=== PATIENT | female | born 1940 | race Caucasian/White ===

== ENCOUNTER → 2018-01-04 | Outpatient (CLI) | payer MEDICARE, OTHER ==
[~2018-01-04] MED LIST: ADULT ASPIRIN81 MG PO; ASPIRIN81 MG PO; BENTYL10 MG PO; CALCIUM + D 601 EAC1 PO; CLOPIDOGREL75 MG PO; CLORAZEPATE D3.75 MG PO; ENSURE HIGH PR414 ML PO; HYDROCODONE-AP1 EAC1 PO; LEVSIN0.125 MG PO; MULTI-VITAMIN1 EACH PO; NORCO 10-325 T1 EACH PO; PEPCID20 MG PO; PREMARIN0.625 MG PO; SPIRIVA18 MCG INH; Z.0.CENTRUM COMPLE1 PO; Z.0.LISINOPRIL10 MG PO; Z.0.OMEPRAZOLE40 MG PO; Z.0.PREMARIN0.9 MG PO; Z.0.ZETIA10 MG PO; ZESTRIL10 MG PO; ZESTRIL2.5 MG PO
--- NOTE | 2018-01-04 16:49 | Diagnostic Imaging Report ---
PROCEDURE:US THYROID COMPARISON:Thyroid ultrasound 12/14/2016. INDICATIONS:Multinodular Goiter TECHNIQUE:Transverse and sagittal images were obtained of the thyroid gland. FINDINGS: THYROID GLAND: SIZE: RIGHT LOBE:4.6 x 2.1 x 1.7 cmNormal in size. LEFT LOBE:3.9 x 1.2 x 1.0 cmNormal in size. ISTHMUS:0.2 cm Normal in size. APPEARANCE:Homogeneous echotexture without increased vasularity MASSES/Nodules: Right thyroid: - 1.9 x 1.5 x 1.4 cm solid isoechoic/hypoechoic nodule with peripheral vascularity in the interpolar region. Previously 1.9 x 1.4 x 1.3 cm. - 0.2 x 0.2 x 0.2 cm cyst in the interpolar region. Left thyroid: - 0.6 x 0.4 x 0.5 cm anechoic cyst in the interpolar region with a single ringdown artifact. Previously 0.5 x 0.3 x 0.8 cm. PARATHYROID: No focal parathyroid masses. CONCLUSION: Stable bilateral thyroid nodules. Dictated by: Adam Diaz M.D. on 01/04/2018 at 16:48 Electronically approved by: Adam Diaz M.D. on 01/04/2018 at 16:48
== END ==
LOC: US 14:00
PROVIDERS: ATTEND Family Medicine
DX: E04.2 Nontoxic multinodular goiter (principal)
CPT/HCPCS: 76536

== ENCOUNTER → 2018-03-08 | Outpatient (CLI) | payer MEDICARE, OTHER ==
[2018-03-08 14:05] LABS: BASOPHILS % 0.3 % (0.0-1.0); EOSINOPHILS # (AUTO) 0.1 (0.0-0.4); EOSINOPHILS % 0.7 % (0.0-6.0); HEMATOCRIT 38.9 % (34.2-44.1); HEMOGLOBIN 13.4 g/dL (12.0-16.0); LYMPHOCYTES # (AUTO) 1.7 (1.0-3.2); LYMPHOCYTES % 18.6 % (18.0-39.1); MEAN CORPUSCULAR HEMOGLOBIN 32.9 pg (28-32); MEAN CORPUSCULAR HGB CONC 34.4 g/dL (31-35); MEAN CORPUSCULAR VOLUME 95.6 fL (81-99); MONOCYTES # (AUTO) 0.4 (0.2-0.8); MONOCYTES % 4.9 % (4.4-11.3); NEUTROPHILS # (AUTO) 6.8 (2.1-6.9); NEUTROPHILS % 75.3 % (38.7-80.0); PLATELET COUNT 229 x10e3/uL (140-360); RED BLOOD COUNT 4.07 x10e6/uL (3.6-5.1); RED CELL DISTRIBUTION WIDTH 12.4 % (11.7-14.4)
[2018-03-08 14:29] LABS: ALANINE AMINOTRANSFERASE 10 IU/L (0-55); ALBUMIN 3.5 g/dL (3.5-5.0); ALBUMIN/GLOBULIN RATIO 1.2 (0.8-2.0); ALKALINE PHOSPHATASE 49 IU/L (40-150); AMYLASE 59 U/L (25-125); ANION GAP 12.4 mmol/L (8-16); BLOOD UREA NITROGEN 21 mg/dL (7-26); BUN/CREATININE RATIO 25 (6-25); CALCIUM 9.5 mg/dL (8.4-10.2); CARBON DIOXIDE 25 mmol/L (22-29); CHLORIDE 102 mmol/L (98-107); CREATININE, SERUM 0.83 mg/dL (0.57-1.11); EST GLOMERULAR FILTRATION RATE > 60 ML/MIN (60-); GLUCOSE 184 mg/dL (74-118); POTASSIUM 4.4 mmol/L (3.5-5.1); SODIUM 135 mmol/L (136-145)
--- NOTE | 2018-03-08 15:21 | Diagnostic Imaging Report ---
PROCEDURE: CT ABDOMEN AND PELVIS WITHOUT CONTRAST TECHNIQUE: The abdomen and pelvis were scanned utilizing a multidetector helical scanner from the diaphragm to the lesser trochanter after the oral administration of Redicat. No IV contrast was administered per physician's request. Coronal and sagittal multiplanar reformations were obtained. COMPARISON: [facility], CT, CT ABDOMEN/PELVIS , 03/14/2015, 20:21. INDICATIONS: VOMITING, WEIGHT LOSS, chronic abdominal pain for "a long time" FINDINGS: ABSENCE OF INTRAVENOUS CONTRAST DECREASES SENSITIVITY FOR DETECTION OF FOCAL LESIONS AND VASCULAR PATHOLOGY. LOWER THORAX: Unremarkable. HEPATOBILIARY: Normal hepatic size and contour. No focal hepatic lesions. Improved, now mild central intrahepatic biliary ductal dilation and improved, now mild to moderate dilation of the common bile duct, which measures 9 mm at the yonatan hepatis. No radiopaque intraluminal filling defects. SPLEEN: No splenomegaly. PANCREAS: No focal masses or ductal dilatation. ADRENALS: No adrenal nodules. KIDNEYS/URETERS: Stable punctate nonobstructing calculus in the interpolar left kidney (series 2 image 20). No other renal or any ureteral calculi, hydronephrosis, or obstruction. No contour abnormalities. Atherosclerotic calcification of the right renal artery branches. PELVIC ORGANS/BLADDER: Bladder is unremarkable. Uterus is absent. No adnexal masses. Multiple pelvic phleboliths. PERITONEUM / RETROPERITONEUM: No free air or fluid. LYMPH NODES: No lymphadenopathy. VESSELS: Atherosclerotic calcification of the abdominal aorta and iliac vessels. Stable, peripherally calcified 0.9 and 0.8 cm distal splenic artery aneurysms (series 2 image 15). GI TRACT: No bowel dilation or evidence of obstruction. No pericolonic inflammatory changes. Distal descending and sigmoid colon diverticulosis, without diverticulitis. BONES AND SOFT TISSUES: No aggressive lytic lesion. Degenerative disc changes L5-S1, which are stable. Stable bilateral gluteal region calcified injection granulomas. IMPRESSION: 1. no acute abdominopelvic abnormalities. 2. Interval decrease in mild central intrahepatic biliary ductal dilation and mild to moderate common bile duct dilation, likely reflecting post cholecystectomy status. 3. Stable punctate nonobstructing calculus in the interpolar left kidney. No ureteral calculi, hydronephrosis, or obstruction. 4. Distal descending and sigmoid colon diverticulosis, without diverticulitis. No bowel dilation or evidence of obstruction. Boris Katz M.D. Dictated by: Boris Katz M.D. on 03/08/2018 at 15:22 Electronically approved by: Boris Katz M.D. on 03/08/2018 at 15:22
== END ==
LOC: CT 13:20
PROVIDERS: ATTEND Surgery
DX: R11.10 Vomiting, unspecified (principal); R63.4 Abnormal weight loss
CPT/HCPCS: 36415; 74176; 80053; 82150; 85025

== ENCOUNTER 2018-03-28 12:40 | Emergency (ER) | payer MEDICARE, OTHER ==
[~2018-03-28] VITALS: Ht 152.4 cm; Wt 41.7 kg
--- OUTSIDE RECORDS SUMMARY | 2018-03-28 12:43 | XMS REPORT ---
Author Author [facility] Address Unknown Phone Unavailable Care Team Providers Care Scratcher Tender Name Role Phone JONN CLAIRE Unavailable Unavailable TARYN GRAY Unavailable Unavailable Problems This patient has no known problems. Allergies, Adverse Reactions, Alerts This patient has no known allergies or adverse reactions. Medications This patient has no known medications. Results Test Description Test Time Test Comments Text Results Atomic Results Result Comments CT ABDOMEN/PELVIS WO [place] [address] Patient Name: SCOTT THOMAS MR #: [id number] : 1940 Age/Sex: 77/F Req # : [id number] Adm Physician: Ordered by: JONN CLAIRE MD Report #: [id number] Location: CT Room/Bed: Procedure: [id number] CT/CT ABDOMEN/PELVIS WO Exam Date: Exam Time: REPORT STATUS: Signed PROCEDURE: CT ABDOMEN AND PELVIS WITHOUT CONTRAST TECHNIQUE: The abdomen and pelvis were scanned utilizing a multidetector helical scanner from the diaphragm to the lesser trochanter after the oral administration of Redicat. No IV contrast was administered per physician's request. Coronal and sagittal multiplanar reformations were obtained. COMPARISON: [facility], CT, CT ABDOMEN/PELVIS WO , 03/14/2015, 20:21. INDICATIONS: VOMITING, WEIGHT LOSS, chronic abdominal pain for "a long time" FINDINGS: ABSENCE OF INTRAVENOUS CONTRAST DECREASES SENSITIVITY FOR DETECTION OF FOCAL LESIONS AND VASCULAR PATHOLOGY. LOWER THORAX: Unremarkable. HEPATOBILIARY: Normal hepatic size and contour. No focal hepatic lesions. Improved, now mild central intrahepatic biliary ductal dilation and improved, now mild to moderate dilation of the common bile duct, which measures 9 mm at the yonatan hepatis. No radiopaque intraluminal filling defects. SPLEEN: No splenomegaly. PANCREAS: No focal masses or ductal dilatation. ADRENALS: No adrenal nodules. KIDNEYS/URETERS: Stable punctate nonobstructing calculus in the interpolar left kidney (series 2 image 20). No other renal or any ureteral calculi, hydronephrosis, or obstruction. No contour abnormalities. Atherosclerotic calcification of the right renal artery branches. PELVIC ORGANS/BLADDER: Bladder is unremarkable. Uterus is absent. No adnexal masses. Multiple pelvic phleboliths. PERITONEUM / RETROPERITONEUM: No free air or fluid. LYMPH NODES: No lymphadenopathy. VESSELS: Atherosclerotic calcification of the abdominal aorta and iliac vessels. Stable, peripherally calcified 0.9 and 0.8 cm distal splenic artery aneurysms (series 2 image 15). GI TRACT: No bowel dilation or evidence of obstruction. No pericolonic inflammatory changes. Distal descending and sigmoid colon diverticulosis, without diverticulitis. BONES AND SOFT TISSUES: No aggressive lytic lesion. Degenerative disc changes L5-S1, which are stable. Stable bilateral gluteal region calcified injection granulomas. IMPRESSION: 1. no acute abdominopelvic abnormalities. 2. Interval decrease in mild central intrahepatic biliary ductal dilation and mild to moderate common bile duct dilation, likely reflecting post cholecystectomy status. 3. Stable punctate nonobstructing calculus in the interpolar left kidney. No ureteral calculi, hydronephrosis, or obstruction. 4. Distal descending and sigmoid colon diverticulosis, without diverticulitis. No bowel dilation or evidence of obstruction. Ramirez Katz M.D. Dictated by: Ramirez Katz M.D. on 03/08/2018 at 15:22 Electronically approved by: Ramirez Katz M.D. on 03/08/2018 at 15:22 Dictated By: RAMIREZ KATZ MD 1522 Transcribed By: JEANNIE on 03/08/18 1522 COPY TO: JONN CLAIRE MD US THYROID [place] [id number] [place] [address] Patient Name: SCOTT THOMAS MR #: [id number] : 1940 Age/Sex: 77/F Req #: [id number] Adm Physician: Ordered by: TARYN GRAY MD Report #: [id number] Location: US Room/Bed: Procedure: [id number] US/US THYROID Exam Date: Exam Time: REPORT STATUS: Signed PROCEDURE: US THYROID COMPARISON: Thyroid ultrasound 12/14/2016. INDICATIONS: Multinodular Goiter TECHNIQUE: Transverse and sagittal images were obtained of the thyroid gland. FINDINGS: THYROID GLAND: SIZE: RIGHT LOBE: 4.6 x 2.1 x 1.7 cm Normal in size. LEFT LOBE: 3.9 x 1.2 x 1.0 cm Normal in size. ISTHMUS : 0.2 cm Normal in size. APPEARANCE: Homogeneous echotexture without increased vasularity MASSES/Nodules: Right thyroid: - 1.9 x 1.5 x 1.4 cm solid isoechoic/hypoechoic nodule with peripheral vascularity in the interpolar region. Previously 1.9 x 1.4 x 1.3 cm. - 0.2 x 0.2 x 0.2 cm cyst in the interpolar region. Left thyroid: - 0.6 x 0.4 x 0.5 cm anechoic cyst in the interpolar region with a single ringdown artifact. Previously 0.5 x 0.3 x 0.8 cm. PARATHYROID: No focal parathyroid masses. CONCLUSION: Stable bilateral thyroid nodules. Dictated by: Jesus Rasheed M.D. on 01/04/2018 at 16:48 Electronically approved by: Jesus Rahseed M.D. on 01/04/2018 at 16:48 Dictated By: JESUS RASHEED MD 1648 Transcribed By: JEANNIE on 01/04/18 1648 COPY TO: TARYN GRAY MD
[2018-03-28 13:32] LABS: BILIRUBIN,URINE NEGATIVE (NEGATIVE); CLARITY,URINE CLEAR (CLEAR); COLOR,URINE YELLOW (YELLOW); KETONES,URINE NEGATIVE (NEGATIVE); LEUKOCYTE ESTERASE ,URINE NEGATIVE (NEGATIVE); NITRITE,URINE NEGATIVE (NEGATIVE); PROTEIN,URINE DIPSTICK NEGATIVE (NEGATIVE); URINE UROBILINOGEN 0.2 mg/dL (0.2 - 1)
[2018-03-28 13:51] LABS: EPITHELIAL CELLS,URINE FEW /LPF
[2018-03-28] MEDS ORDERED: HYDROCODONE/APAP 5MG-325MG TAB PO ONE (14:15)
[2018-03-28 16:35] VITALS: BP 172/71
== END 2018-03-28 16:39 | disposition home or self-care (01) ==
LOC: ER 12:40
DX: M54.41 Lumbago with sciatica, right side (principal)
CPT/HCPCS: 81001; 99283

== ENCOUNTER 2018-12-26 16:28 | Emergency (ER) | payer MEDICARE, OTHER ==
[~2018-12-26] VITALS: Ht 152.4 cm; Wt 41.7 kg
[2018-12-26] MEDS ORDERED: SODIUM CHLORIDE 0.9% 1000ML 1,000 ML IV STA (18:05)
[2018-12-26] MEDS ORDERED: DIATRIZOATE MEGL/DIATRIZOA SOD 30 ML BTL PO ONE (18:20)
[2018-12-26] MEDS ORDERED: ONDANSETRON HCL INJ 2MG/ML 2ML 2 MG/ML VIAL IV ONE ×2 (18:30→22:00)
[2018-12-26] MEDS ORDERED: MORPHINE SULFATE INJ 4 MG/ML INJ 1ML IV ONE ×2 (18:30→22:00)
--- NOTE | 2018-12-26 20:16 | Diagnostic Imaging Report ---
EXAMINATION: CHEST SINGLE (PORTABLE) INDICATION: Severe diarrhea. Weakness. COMPARISON: None FINDINGS: AP view TUBES and LINES: None. LUNGS: Lungs are well inflated. Lungs are clear. There is no evidence of pneumonia or pulmonary edema. PLEURA: No pleural effusion or pneumothorax. HEART AND MEDIASTINUM: The cardiomediastinal silhouette is unremarkable. BONES AND SOFT TISSUES: No acute osseous lesion. Healed prior fracture deformities. Soft tissues are unremarkable. UPPER ABDOMEN: No free air under the diaphragm. IMPRESSION: No acute thoracic abnormality. Signed by: Dr. Adam Diaz M.D. on 12/26/2018 8:13 PM
--- NOTE | 2018-12-26 20:22 | Diagnostic Imaging Report ---
EXAM: CT Abdomen and Pelvis WITHOUT contrast INDICATION: ^abdominal pain and n/v/d COMPARISON: None. TECHNIQUE: Abdomen and pelvis were scanned utilizing a multidetector helical scanner from the lung base to the pubic symphysis without administration of IV contrast. Absence of intravenous contrast decreases sensitivity for detection of focal lesions and vascular pathology. Coronal and sagittal reformations were obtained. Routine protocol was performed. IV CONTRAST: None ORAL CONTRAST: Gastrografin COMPLICATIONS: None RADIATION DOSE: Total DLP: 147.42 mGy*cm Estimated effective dose: (DLP x 0.015 x size factor) mSv CTDIvol has been reviewed. It is below the limits set by the Radiation Protocol Committee (RPC). FINDINGS: LINES and TUBES: None. LOWER THORAX: Unremarkable HEPATOBILIARY: No focal hepatic lesions. There is intra- and extra- hepatic biliary dilation likely post cholecystectomy reservoir effect. GALLBLADDER: There are cholecystectomy clips. SPLEEN: No splenomegaly. PANCREAS: No focal masses or ductal dilatation. ADRENALS: No adrenal nodules KIDNEYS/URETERS: No hydronephrosis. No cystic or solid mass lesions. No stones. GI TRACT: No abnormal distention, wall thickening, or evidence of bowel obstruction. There are diverticula within the colon with mild wall thickening in the sigmoid colon (series 2, image 52). Appendix is not clearly identified. There is however no fat stranding or adenopathy in the right lower quadrant to suggest appendicitis. PELVIC ORGANS/BLADDER: Unremarkable. LYMPH NODES: No lymphadenopathy. VESSELS: There is severe atherosclerotic disease in the aorta and major arterial branches. Possible 0.9 cm calcified splenic artery aneurysm. PERITONEUM / RETROPERITONEUM: No free air or fluid. BONES: Focal moderate severe degenerative changes in L5-S1. SOFT TISSUES: Unremarkable. IMPRESSION: 1. Scattered colonic diverticula especially in the sigmoid colon. 2. Bowel wall thickening of the sigmoid colon, likely colitis rather than diverticulitis. 3. Severe vascular calcifications. Signed by: Dr. Adam Diaz M.D. on 12/26/2018 8:18 PM
[2018-12-26 20:59] LABS: BASOPHILS % 0.3 % (0.0-1.0); EOSINOPHILS # (AUTO) 0.1 (0.0-0.4); EOSINOPHILS % 0.8 % (0.0-6.0); HEMATOCRIT 40.9 % (34.2-44.1); HEMOGLOBIN 14.1 g/dL (12.0-16.0); LYMPHOCYTES # (AUTO) 2.2 (1.0-3.2); MEAN CORPUSCULAR HEMOGLOBIN 31.9 pg (28-32); MEAN CORPUSCULAR HGB CONC 34.5 g/dL (31-35); MEAN CORPUSCULAR VOLUME 92.5 fL (81-99); MONOCYTES # (AUTO) 0.5 (0.2-0.8); MONOCYTES % 6.1 % (4.4-11.3); NEUTROPHILS % 67.6 % (38.7-80.0); PLATELET COUNT 240 x10e3/uL (140-360); RED BLOOD COUNT 4.42 x10e6/uL (3.6-5.1); RED CELL DISTRIBUTION WIDTH 12.8 % (11.7-14.4)
[2018-12-26 21:10] LABS: INR 0.92; PARTIAL THROMBOPLASTIN TIME 24.4 seconds (23.8-35.5); PROTHROMBIN TIME 13.2 seconds (11.9-14.5)
[2018-12-26 21:18] LABS: ALANINE AMINOTRANSFERASE 10 IU/L (0-55); ALBUMIN 4.1 g/dL (3.5-5.0); ALBUMIN/GLOBULIN RATIO 1.6 (0.8-2.0); ALKALINE PHOSPHATASE 53 IU/L (40-150); AMYLASE 76 U/L (25-125); ANION GAP 17.5 mmol/L (8-16); BLOOD UREA NITROGEN 17 mg/dL (7-26); BUN/CREATININE RATIO 21 (6-25); CALCIUM 9.5 mg/dL (8.4-10.2); CARBON DIOXIDE 22 mmol/L (22-29); CHLORIDE 99 mmol/L (98-107); CREATININE, SERUM 0.82 mg/dL (0.57-1.11); EST GLOMERULAR FILTRATION RATE > 60 ML/MIN (60-); GLUCOSE 85 mg/dL (74-118); LIPASE 34 U/L (8-78); MAGNESIUM 2.1 MG/DL (1.3-2.1); POTASSIUM 3.5 mmol/L (3.5-5.1); SODIUM 135 mmol/L (136-145)
[2018-12-26 21:25] LABS: CREATINE KINASE MB 1.5 ng/mL (0-5.0)
[2018-12-26] MEDS ORDERED: ONDANSETRON HCL INJ 2MG/ML 2ML 2 MG/ML VIAL ONE (21:47)
--- NOTE | 2018-12-26 21:54 | NUR ---
pt reports itching without rash to iv site after morphine. GILBERTO Jordan notified
[2018-12-26] MEDS ORDERED: SODIUM CHLORIDE 0.9% 1000ML 1,000 ML IV ONE (22:00)
[2018-12-26] MEDS ORDERED: CIPROFLOXACIN 500 MG TAB PO STA (23:52)
[2018-12-27] MEDS ORDERED: METRONIDAZOLE 500 MG TAB PO ONE
[2019-01-04] MEDS ORDERED: CLONAZEPAM0.5 MG PO (16:54)
== END 2018-12-27 00:35 | disposition home or self-care (01) ==
LOC: ER 16:28
DX: R10.84 Generalized abdominal pain (principal); R11.0 Nausea; R19.7 Diarrhea, unspecified; K52.9 Noninfective gastroenteritis and colitis, unspecified; K57.92 Diverticulitis of intestine, part unspecified, without perforation or abscess without bleeding; I10 Essential (primary) hypertension; K21.9 Gastro-esophageal reflux disease without esophagitis; M54.9 Dorsalgia, unspecified; G89.29 Other chronic pain
CPT/HCPCS: 36415; 71045; 74176; 80053; 82150; 82550; 82553; 83690; 83735; 84484; 85025; 85610; 85730; 93005; 99284; J2270; J2405; J7030

== ENCOUNTER → 2019-01-06 | Day surgery (SDC) | payer MEDICARE, OTHER ==
[~2019-01-06] MED LIST changes: +CLONAZEPAM0.5 MG PO; +LIDOCAINE HCL 2% LOCAL INJ 5 ML SDV VIAL INJ ONE; +PROPOFOL IV EMULSION 10 MG/ML 20 ML VIAL ONE
[2019-01-06 11:20] VITALS: BP 144/62
== END | disposition home or self-care (01) ==
LOC: OR 07:27
PROVIDERS: ATTEND Surgery
DX: K29.70 Gastritis, unspecified, without bleeding (principal); D12.2 Benign neoplasm of ascending colon; R19.09 Other intra-abdominal and pelvic swelling, mass and lump; K21.0 Gastro-esophageal reflux disease with esophagitis; K29.80 Duodenitis without bleeding; K28.9 Gastrojejunal ulcer, unspecified as acute or chronic, without hemorrhage or perforation; K57.30 Diverticulosis of large intestine without perforation or abscess without bleeding; R63.4 Abnormal weight loss; J44.9 Chronic obstructive pulmonary disease, unspecified; I25.10 Atherosclerotic heart disease of native coronary artery without angina pectoris; E04.1 Nontoxic single thyroid nodule; R53.1 Weakness; R42 Dizziness and giddiness; F17.210 Nicotine dependence, cigarettes, uncomplicated; Z88.0 Allergy status to penicillin; Z88.2 Allergy status to sulfonamides; Z88.8 Allergy status to other drugs, medicaments and biological substances; Z88.6 Allergy status to analgesic agent; Z88.3 Allergy status to other anti-infective agents; Z91.041 Radiographic dye allergy status; Z79.02 Long term (current) use of antithrombotics/antiplatelets; Z87.442 Personal history of urinary calculi; Z86.73 Personal history of transient ischemic attack (TIA), and cerebral infarction without residual deficits; Z95.820 Peripheral vascular angioplasty status with implants and grafts; Z95.5 Presence of coronary angioplasty implant and graft
CPT/HCPCS: 43239; 45380; 88305; 88312; J2001; J2704

== ENCOUNTER 2021-11-03 12:26 | Inpatient (IN) | payer MEDICARE, OTHER ==
[~2021-11-03] VITALS: Ht 152.4 cm; Wt 35.9 kg
[~2021-11-03 12:26] MED LIST changes: -LIDOCAINE HCL 2% LOCAL INJ 5 ML SDV VIAL INJ ONE; -PROPOFOL IV EMULSION 10 MG/ML 20 ML VIAL ONE
[2021-11-03] MEDS: SODIUM CHLORIDE 0.9% 1000ML 1,000 ML IV SCH ×2 (13:24→17:15)
[2021-11-03 13:40] LABS: BASOPHILS # (AUTO) 0.1 (0.0-0.1); BASOPHILS % 0.5 % (0.0-1.0); EOSINOPHILS # (AUTO) 0.8 (0.0-0.4); EOSINOPHILS % 8.3 % (0.0-6.0); HEMOGLOBIN 15.8 g/dL (12.0-16.0); LYMPHOCYTES # (AUTO) 1.5 (1.0-3.2); LYMPHOCYTES % 14.9 % (18.0-39.1); MEAN CORPUSCULAR HEMOGLOBIN 31.5 pg (28-32); MEAN CORPUSCULAR HGB CONC 33.6 g/dL (31-35); MEAN CORPUSCULAR VOLUME 93.6 fL (81-99); MONOCYTES # (AUTO) 0.4 (0.2-0.8); MONOCYTES % 3.9 % (4.4-11.3); NEUTROPHILS % 72.1 % (38.7-80.0); PLATELET COUNT 273 x10e3/uL (140-360); RED BLOOD COUNT 5.02 x10e6/uL (3.6-5.1); RED CELL DISTRIBUTION WIDTH 13.2 % (11.7-14.4)
[2021-11-03 14:14] LABS: ALBUMIN/GLOBULIN RATIO 1.3 (0.8-2.0); ANION GAP 18.4 mmol/L (8-16); CALCIUM 9.8 mg/dL (8.4-10.2); CREATININE, SERUM 1.16 mg/dL (0.57-1.11); POTASSIUM 4.4 mmol/L (3.5-5.1)
[2021-11-03 14:16] LABS: LIPASE 46 U/L (8-78)
[2021-11-03] MEDS ORDERED: LACTATED RINGER'S 1,000 ML INJ ONE (14:30)
[2021-11-03 16:26] VITALS: BP 146/88
[2021-11-03 20:00] VITALS: BP 129/65
[2021-11-03] MEDS ORDERED: ZOLOFT50 MG PO (22:21)
[2021-11-04] VITALS (8 sets, daily range): BP systolic 128–169; BP diastolic 44–96
[2021-11-04 05:02] LABS: BASOPHILS # (AUTO) 0.1 (0.0-0.1); BASOPHILS % 1.2 % (0.0-1.0); EOSINOPHILS # (AUTO) 1.4 (0.0-0.4); EOSINOPHILS % 23.1 % (0.0-6.0); HEMATOCRIT 36.2 % (34.2-44.1); HEMOGLOBIN 11.9 g/dL (12.0-16.0); MEAN CORPUSCULAR HEMOGLOBIN 31.4 pg (28-32); MEAN CORPUSCULAR HGB CONC 32.9 g/dL (31-35); MEAN CORPUSCULAR VOLUME 95.5 fL (81-99); MONOCYTES # (AUTO) 0.4 (0.2-0.8); MONOCYTES % 6.4 % (4.4-11.3); NEUTROPHILS # (AUTO) 2.2 (2.1-6.9); NEUTROPHILS % 36.1 % (38.7-80.0); PLATELET COUNT 218 x10e3/uL (140-360); RED BLOOD COUNT 3.79 x10e6/uL (3.6-5.1); RED CELL DISTRIBUTION WIDTH 13.2 % (11.7-14.4)
[2021-11-04 05:31] LABS: ALBUMIN 2.9 g/dL (3.5-5.0); ALBUMIN/GLOBULIN RATIO 1.5 (0.8-2.0); ANION GAP 12.9 mmol/L (8-16); CALCIUM 8.1 mg/dL (8.4-10.2); CREATININE, SERUM 0.77 mg/dL (0.57-1.11); POTASSIUM 3.9 mmol/L (3.5-5.1)
[2021-11-04] MEDS: SODIUM CHLORIDE 0.9% 1000ML 1,000 ML IV SCH ×3 (06:13→21:15)
[2021-11-04 06:32] LABS: EOSINOPHILS % (MANUAL) 26 % (0-7); LYMPHOCYTES % (MANUAL) 34 % (19-48); MONOCYTES % (MANUAL) 4 % (3.4-9.0); NEUTROPHILS % (MANUAL) 36 % (40-74); PLATELET ESTIMATE ADEQUATE; PLATELET MORPHOLOGY COMMENT NORMAL; RBC MORPHOLOGY COMMENT NORMAL
[2021-11-04] MEDS ORDERED: CLONAZEPAM 0.5 MG TAB PO PRN (09:30)
[2021-11-04] MEDS: Morphine 2mg Syringe 2 MG/ML SYR IV PRN (23:00)
[2021-11-05] VITALS (8 sets, daily range): BP systolic 126–152; BP diastolic 44–66
[2021-11-05 01:01] LABS: % IRON SATURATION 34 % (15-50); IRON 75 ug/dL (50-170); TOTAL IRON BINDING CAPACITY 220 ug/dL (261-478); TRANSFERRIN 157 mg/dL (180-382)
[2021-11-05] MEDS: SODIUM CHLORIDE 0.9% 1000ML 1,000 ML IV SCH ×3 (05:15→21:15)
[2021-11-05] MEDS ORDERED: DICYCLOMINE HCL 20 MG TAB PO SCH (06:00)
[2021-11-05] MEDS: DICYCLOMINE HCL 20 MG TAB PO SCH ×3 (08:04→22:15)
[2021-11-05] MEDS: CHOLESTYRAMINE 4 GM PACKET PO SCH ×2 (08:07→16:55)
[2021-11-05 13:23] LABS: WBC,FECAL (FECAL LACTOFERRIN) NEGATIVE (NEGATIVE)
[2021-11-05 14:42] LABS: C DIFFICILE TOXIN A&B AMP PROB NEGATIVE (NEGATIVE)
[2021-11-05] MEDS: Morphine 2mg Syringe 2 MG/ML SYR IV PRN (22:20)
[2021-11-05] MEDS ORDERED: DIPHENHYDRAMINE HCL 25 MG CAP PO PRN (22:30)
[2021-11-05] MEDS ORDERED: DIPHENOXYLATE/ATROPINE TAB PO STA (23:19)
[2021-11-05] MEDS ORDERED: CHOLESTYRAMINE 4 GM PACKET PO PRN (23:30)
[2021-11-06] VITALS: BP 137/53
[2021-11-06 04:00] VITALS: BP 124/53
[2021-11-06] MEDS: SODIUM CHLORIDE 0.9% 1000ML 1,000 ML IV SCH ×2 (05:15→06:17)
[2021-11-06 06:05] LABS: ANION GAP 12.9 mmol/L (8-16); CALCIUM 8.3 mg/dL (8.4-10.2); CREATININE, SERUM 0.77 mg/dL (0.57-1.11); POTASSIUM 3.9 mmol/L (3.5-5.1)
[2021-11-06] MEDS: DICYCLOMINE HCL 20 MG TAB PO SCH ×2 (06:17→14:05)
[2021-11-06 07:30] VITALS: BP 130/74
[2021-11-06 08:07] VITALS: BP 130/74
[2021-11-06 11:54] VITALS: BP 156/43
[2021-11-06] MEDS ORDERED: QUESTRAN PACKET4 GM PO (15:42)
[2021-11-06 16:00] VITALS: BP 133/79
[2021-11-06] MEDS ORDERED: PANTOPRAZOLE SOD 40 MG TABEC PO SCH (16:30)
== END 2021-11-06 16:39 | disposition home health service (06) | DRG 682 ==
LOC: ER 12:35 → ERHOLD 13:21 → MED/SURG 16:16
PROVIDERS: ADMIT Family Medicine; ATTEND Family Medicine
DX: N17.9 Acute kidney failure, unspecified (principal); E43 Unspecified severe protein-calorie malnutrition; R64 Cachexia; Z68.1 Body mass index [BMI] 19.9 or less, adult; E86.0 Dehydration; K59.1 Functional diarrhea; F41.1 Generalized anxiety disorder; I25.10 Atherosclerotic heart disease of native coronary artery without angina pectoris; Z95.5 Presence of coronary angioplasty implant and graft; Z88.6 Allergy status to analgesic agent; Z88.1 Allergy status to other antibiotic agents; Z88.5 Allergy status to narcotic agent; Z88.0 Allergy status to penicillin; Z88.2 Allergy status to sulfonamides; Z95.820 Peripheral vascular angioplasty status with implants and grafts; G89.29 Other chronic pain; Z20.822 Contact with and (suspected) exposure to COVID-19
CPT/HCPCS: 36415; 71045; 80048; 80053; 82607; 82746; 83540; 83630; 83690; 83993; 84466; 84484; 85025; 85045; 87045; 87177; 87493; 93005; 94799; 96360; 97139; 99251; 99284; J2270; J7030; J7121; U0002

== ENCOUNTER → 2022-01-30 | Outpatient (CLI) | payer MEDICARE ==
[~2022-01-30] MED LIST changes: +METOPROLOL SUCC25 MG PO; +MINOCYCLINE HCL50 MG PO; +QUESTRAN PACKET4 GM PO; +ZOLOFT50 MG PO
== END ==
LOC: CT 14:10
PROVIDERS: ATTEND Family Medicine
DX: R10.0 Acute abdomen (principal)
CPT/HCPCS: 74176

== ENCOUNTER 2022-06-26 18:05 | Emergency (ER) | payer MEDICARE ==
[~2022-06-26] VITALS: Ht 152.4 cm; Wt 29.5 kg
[2022-06-26 18:51] LABS: BASOPHILS % 0.5 % (0.0-1.0); EOSINOPHILS % 0.7 % (0.0-6.0); HEMOGLOBIN 13.9 g/dL (12.0-16.0); LYMPHOCYTES # (AUTO) 1.2 (1.0-3.2); LYMPHOCYTES % 21.1 % (18.0-39.1); MEAN CORPUSCULAR HEMOGLOBIN 31.2 pg (28-32); MEAN CORPUSCULAR HGB CONC 33.1 g/dL (31-35); MEAN CORPUSCULAR VOLUME 94.4 fL (81-99); MONOCYTES # (AUTO) 0.3 (0.2-0.8); MONOCYTES % 5.8 % (4.4-11.3); NEUTROPHILS # (AUTO) 4.2 (2.1-6.9); NEUTROPHILS % 71.7 % (38.7-80.0); PLATELET COUNT 213 x10e3/uL (140-360); RED BLOOD COUNT 4.45 x10e6/uL (3.6-5.1); RED CELL DISTRIBUTION WIDTH 13.2 % (11.7-14.4)
[2022-06-26 18:53] LABS: CLARITY,URINE CLEAR (CLEAR); COLOR,URINE YELLOW (YELLOW); KETONES,URINE NEGATIVE (NEGATIVE); LEUKOCYTE ESTERASE ,URINE NEGATIVE (NEGATIVE); NITRITE,URINE NEGATIVE (NEGATIVE); PROTEIN,URINE DIPSTICK NEGATIVE (NEGATIVE); URINE UROBILINOGEN 0.2 mg/dL (0.2 - 1)
[2022-06-26 19:05] LABS: BACTERIA,URINE MANY /HPF; EPITHELIAL CELLS,URINE RARE /LPF; WBC,URINE (MAN) 0-5 /HPF (0-5)
[2022-06-26 19:11] LABS: ALBUMIN 3.5 g/dL (3.5-5.0); ALBUMIN/GLOBULIN RATIO 1.1 (0.8-2.0); CALCIUM 9.1 mg/dL (8.4-10.2); CREATININE, SERUM 0.84 mg/dL (0.57-1.11)
[2022-06-26 19:17] LABS: CREATINE KINASE MB 1.4 ng/mL (0-5.0)
[2022-06-26 20:20] VITALS: BP 133/66
== END 2022-06-26 20:21 | disposition home or self-care (01) ==
LOC: ER 18:20
DX: R53.1 Weakness (principal); I10 Essential (primary) hypertension; E03.9 Hypothyroidism, unspecified; R94.31 Abnormal electrocardiogram [ECG] [EKG]; Z20.822 Contact with and (suspected) exposure to COVID-19; Z86.73 Personal history of transient ischemic attack (TIA), and cerebral infarction without residual deficits; Z95.5 Presence of coronary angioplasty implant and graft; F17.210 Nicotine dependence, cigarettes, uncomplicated
CPT/HCPCS: 36415; 71045; 80053; 81001; 82550; 82553; 84484; 85025; 93005; 99284; U0002

== ENCOUNTER 2023-02-14 18:27 | Inpatient (IN) | payer MEDICARE ==
[~2023-02-14] VITALS: Ht 152.4 cm; Wt 29.5 kg
[2023-02-14] MEDS ORDERED: SODIUM CHLORIDE 0.9% 1000ML 1,000 ML IV STA (18:31)
[2023-02-14 18:59] LABS: BASOPHILS # (AUTO) 0.1 (0.0-0.1); BASOPHILS % 0.5 % (0.0-1.0); HEMATOCRIT 40.4 % (34.2-44.1); HEMOGLOBIN 13.6 g/dL (12.0-16.0); LYMPHOCYTES # (AUTO) 1.1 (1.0-3.2); LYMPHOCYTES % 10.1 % (18.0-39.1); MEAN CORPUSCULAR HEMOGLOBIN 30.8 pg (28-32); MEAN CORPUSCULAR HGB CONC 33.7 g/dL (31-35); MEAN CORPUSCULAR VOLUME 91.6 fL (81-99); MONOCYTES # (AUTO) 0.4 (0.2-0.8); MONOCYTES % 3.9 % (4.4-11.3); NEUTROPHILS # (AUTO) 8.9 (2.1-6.9); NEUTROPHILS % 85.2 % (38.7-80.0); PLATELET COUNT 289 x10e3/uL (140-360); RED BLOOD COUNT 4.41 x10e6/uL (3.6-5.1); RED CELL DISTRIBUTION WIDTH 12.5 % (11.7-14.4)
[2023-02-14 19:10] LABS: CLARITY,URINE CLEAR (CLEAR); COLOR,URINE STRAW (YELLOW); KETONES,URINE NEGATIVE (NEGATIVE); LEUKOCYTE ESTERASE ,URINE NEGATIVE (NEGATIVE); NITRITE,URINE NEGATIVE (NEGATIVE); PROTEIN,URINE DIPSTICK NEGATIVE (NEGATIVE); RBC,URINE 0-5 /HPF (0-5); URINE UROBILINOGEN 0.2 mg/dL (0.2 - 1)
[2023-02-14 19:11] LABS: EPITHELIAL CELLS,URINE FEW /LPF
[2023-02-14 19:14] LABS: ALANINE AMINOTRANSFERASE 20 IU/L (0-55); ALBUMIN 3.2 g/dL (3.5-5.0); ALBUMIN/GLOBULIN RATIO 0.9 (0.8-2.0); ALKALINE PHOSPHATASE 88 IU/L (40-150); ANION GAP 18.3 mmol/L (8-16); BLOOD UREA NITROGEN 94 mg/dL (7-26); BUN/CREATININE RATIO 46 (6-25); CALCIUM 11.6 mg/dL (8.4-10.2); CARBON DIOXIDE 25 mmol/L (22-29); CHLORIDE 101 mmol/L (98-107); CREATINE KINASE 12 IU/L (29-168); CREATININE, SERUM 2.03 mg/dL (0.57-1.11); GLUCOSE 108 mg/dL (74-118); POTASSIUM 4.3 mmol/L (3.5-5.1); SODIUM 140 mmol/L (136-145)
[2023-02-14] MEDS: SODIUM CHLORIDE 0.9% 1000ML 1,000 ML IV SCH (21:00)
[2023-02-14 22:33] VITALS: BP 148/45
[2023-02-14 22:52] VITALS: BP 148/45
[2023-02-14 22:59] VITALS: BP 148/45
[2023-02-15] VITALS (7 sets, daily range): BP systolic 123–176; BP diastolic 57–72
[2023-02-15 05:31] LABS: BASOPHILS % 0.5 % (0.0-1.0); LYMPHOCYTES % 14.7 % (18.0-39.1); MEAN CORPUSCULAR HEMOGLOBIN 30.5 pg (28-32); MEAN CORPUSCULAR HGB CONC 31.6 g/dL (31-35); MEAN CORPUSCULAR VOLUME 96.7 fL (81-99); MONOCYTES # (AUTO) 0.5 (0.2-0.8); MONOCYTES % 7.9 % (4.4-11.3); NEUTROPHILS # (AUTO) 5.1 (2.1-6.9); NEUTROPHILS % 76.7 % (38.7-80.0); PLATELET COUNT 252 x10e3/uL (140-360); RED BLOOD COUNT 3.93 x10e6/uL (3.6-5.1); RED CELL DISTRIBUTION WIDTH 12.5 % (11.7-14.4)
[2023-02-15] MEDS: SODIUM CHLORIDE 0.9% 1000ML 1,000 ML IV SCH ×2 (05:33→19:38)
[2023-02-15] MEDS ORDERED: ULTRAM 50MG50 MG PO (05:33)
[2023-02-15 06:32] LABS: ALBUMIN 2.8 g/dL (3.5-5.0); ANION GAP 14.8 mmol/L (8-16); CALCIUM 10.3 mg/dL (8.4-10.2); CREATININE, SERUM 1.67 mg/dL (0.57-1.11); POTASSIUM 3.8 mmol/L (3.5-5.1)
[2023-02-15 07:10] LABS: CREATINE KINASE 20 IU/L (29-168)
[2023-02-15] MEDS: TRAMADOL HCL 50 MG TAB PO PRN ×2 (13:27→19:22)
[2023-02-15 14:57] LABS: CREATINE KINASE 30 IU/L (29-168)
[2023-02-16] VITALS (7 sets, daily range): BP systolic 154–176; BP diastolic 58–72
[2023-02-16] MEDS: TRAMADOL HCL 50 MG TAB PO PRN ×4 (01:09→23:52)
[2023-02-16 05:14] LABS: BASOPHILS # (AUTO) 0.1 (0.0-0.1); BASOPHILS % 0.9 % (0.0-1.0); EOSINOPHILS % 0.5 % (0.0-6.0); HEMATOCRIT 34.7 % (34.2-44.1); HEMOGLOBIN 11.7 g/dL (12.0-16.0); LYMPHOCYTES # (AUTO) 1.3 (1.0-3.2); LYMPHOCYTES % 22.9 % (18.0-39.1); MEAN CORPUSCULAR HEMOGLOBIN 30.8 pg (28-32); MEAN CORPUSCULAR HGB CONC 33.7 g/dL (31-35); MEAN CORPUSCULAR VOLUME 91.3 fL (81-99); MONOCYTES # (AUTO) 0.5 (0.2-0.8); MONOCYTES % 9.7 % (4.4-11.3); NEUTROPHILS # (AUTO) 3.6 (2.1-6.9); NEUTROPHILS % 65.6 % (38.7-80.0); PLATELET COUNT 237 x10e3/uL (140-360); RED CELL DISTRIBUTION WIDTH 12.4 % (11.7-14.4)
[2023-02-16 05:35] LABS: ALBUMIN 2.8 g/dL (3.5-5.0); ANION GAP 13.6 mmol/L (8-16); CALCIUM 9.2 mg/dL (8.4-10.2); CHOL/HDL RATIO 4.8 (3.0-3.6); CREATININE, SERUM 1.34 mg/dL (0.57-1.11); POTASSIUM 3.6 mmol/L (3.5-5.1)
[2023-02-16 05:49] LABS: THYROID STIMULATING HORMONE 1.66 uIU/mL (0.350-4.940)
[2023-02-16] MEDS: SODIUM CHLORIDE 0.9% 1000ML 1,000 ML IV SCH ×2 (09:00→22:18)
[2023-02-16] MEDS ORDERED: METOPROLOL SUCCINATE 25 MG TAB XL PO ONE (19:50)
[2023-02-17 04:38] VITALS: BP 139/65
[2023-02-17 04:58] LABS: BASOPHILS # (AUTO) 0.1 (0.0-0.1); BASOPHILS % 1.4 % (0.0-1.0); EOSINOPHILS # (AUTO) 0.1 (0.0-0.4); EOSINOPHILS % 2.7 % (0.0-6.0); HEMATOCRIT 35.9 % (34.2-44.1); HEMOGLOBIN 11.3 g/dL (12.0-16.0); LYMPHOCYTES # (AUTO) 1.3 (1.0-3.2); MEAN CORPUSCULAR HEMOGLOBIN 30.8 pg (28-32); MEAN CORPUSCULAR HGB CONC 31.5 g/dL (31-35); MEAN CORPUSCULAR VOLUME 97.8 fL (81-99); MONOCYTES # (AUTO) 0.6 (0.2-0.8); MONOCYTES % 11.7 % (4.4-11.3); NEUTROPHILS # (AUTO) 2.8 (2.1-6.9); NEUTROPHILS % 56.8 % (38.7-80.0); PLATELET COUNT 231 x10e3/uL (140-360); RED BLOOD COUNT 3.67 x10e6/uL (3.6-5.1); RED CELL DISTRIBUTION WIDTH 12.4 % (11.7-14.4)
[2023-02-17 05:20] LABS: ANION GAP 13.6 mmol/L (8-16); CALCIUM 9.1 mg/dL (8.4-10.2); CREATININE, SERUM 1.29 mg/dL (0.57-1.11); POTASSIUM 3.6 mmol/L (3.5-5.1)
[2023-02-17 08:07] VITALS: BP 158/71
[2023-02-17] MEDS: CLOPIDOGREL BISULFATE 75 MG TAB PO SCH (09:42)
[2023-02-17] MEDS: METOPROLOL SUCCINATE 25 MG TAB XL PO SCH (09:44)
[2023-02-17 09:50] VITALS: BP 158/71
[2023-02-17] MEDS: SODIUM CHLORIDE 0.9% 1000ML 1,000 ML IV SCH ×2 (11:40→21:23)
[2023-02-17 12:14] VITALS: BP 165/65
[2023-02-17] MEDS: TRAMADOL HCL 50 MG TAB PO PRN (15:20)
[2023-02-17 16:52] VITALS: BP 165/65
[2023-02-17 20:00] VITALS: BP 176/63
[2023-02-17] MEDS ORDERED: ATORVASTATIN 10 MG TAB PO SCH (21:00)
[2023-02-18] VITALS: BP 184/74
[2023-02-18] MEDS: TRAMADOL HCL 50 MG TAB PO PRN ×2 (01:25→14:13)
[2023-02-18 04:00] VITALS: BP 170/62
[2023-02-18] MEDS: SODIUM CHLORIDE 0.9% 1000ML 1,000 ML IV SCH (04:09)
[2023-02-18 08:06] VITALS: BP 160/57
[2023-02-18] MEDS: METOPROLOL SUCCINATE 25 MG TAB XL PO SCH (09:51)
[2023-02-18] MEDS: CLOPIDOGREL BISULFATE 75 MG TAB PO SCH (09:52)
[2023-02-18 09:58] VITALS: BP 160/51
[2023-02-18 12:18] VITALS: BP 172/65
[2023-02-18 17:14] VITALS: BP 163/53
[2023-02-18] MEDS ORDERED: ROBAXIN PO (18:17)
== END 2023-02-18 18:36 | disposition home or self-care (01) | DRG 683 ==
LOC: ER 18:31 → ERHOLD 20:52 → MED/SURG 22:13 → OBSVTOIN 02-16 08:55
PROVIDERS: ADMIT Family Medicine; ATTEND Family Medicine
DX: N17.9 Acute kidney failure, unspecified (principal); I69.354 Hemiplegia and hemiparesis following cerebral infarction affecting left non-dominant side; Z68.1 Body mass index [BMI] 19.9 or less, adult; R62.7 Adult failure to thrive; E11.51 Type 2 diabetes mellitus with diabetic peripheral angiopathy without gangrene; E86.0 Dehydration; Z79.4 Long term (current) use of insulin; F17.210 Nicotine dependence, cigarettes, uncomplicated; K21.9 Gastro-esophageal reflux disease without esophagitis; E03.9 Hypothyroidism, unspecified; I25.10 Atherosclerotic heart disease of native coronary artery without angina pectoris; Z95.1 Presence of aortocoronary bypass graft; Z88.0 Allergy status to penicillin; Z88.2 Allergy status to sulfonamides; Z91.041 Radiographic dye allergy status; E83.52 Hypercalcemia; R19.7 Diarrhea, unspecified
CPT/HCPCS: 36415; 70450; 71045; 80048; 80053; 80061; 81001; 82550; 82553; 84443; 84484; 85025; 93005; 93306; 93880; 99252; 99284; G0378; J7030

== ENCOUNTER 2024-03-06 23:42 | Emergency (ER) | payer MEDICARE ==
[~2024-03-06] VITALS: Ht 149.9 cm; Wt 38.6 kg
[~2024-03-06 23:42] MED LIST changes: +ROBAXIN PO; +ULTRAM 50MG50 MG PO
[2024-03-07] MEDS: METHYLPREDNISOLONE SOD SUCC 125 MG/2ML VIAL IV ONE (00:38)
[2024-03-07 00:42] LABS: BASOPHILS # (AUTO) 0.1 (0.0-0.1); BASOPHILS % 0.5 % (0.0-1.0); EOSINOPHILS # (AUTO) 0.1 (0.0-0.4); EOSINOPHILS % 1.3 % (0.0-6.0); HEMATOCRIT 38.4 % (34.2-44.1); HEMOGLOBIN 13.2 g/dL (12.0-16.0); LYMPHOCYTES # (AUTO) 0.8 (1.0-3.2); LYMPHOCYTES % 8.6 % (18.0-39.1); MEAN CORPUSCULAR HEMOGLOBIN 32.1 pg (28-32); MEAN CORPUSCULAR HGB CONC 34.4 g/dL (31-35); MEAN CORPUSCULAR VOLUME 93.4 fL (81-99); MONOCYTES # (AUTO) 0.6 (0.2-0.8); MONOCYTES % 6.8 % (4.4-11.3); NEUTROPHILS # (AUTO) 7.7 (2.1-6.9); NEUTROPHILS % 82.4 % (38.7-80.0); PLATELET COUNT 278 x10e3/uL (140-360); RED BLOOD COUNT 4.11 x10e6/uL (3.6-5.1); RED CELL DISTRIBUTION WIDTH 12.9 % (11.7-14.4); WHITE BLOOD COUNT 9.32 x10e3/uL (4.8-10.8)
[2024-03-07 01:08] LABS: ALBUMIN 3.4 g/dL (3.5-5.0); ALBUMIN/GLOBULIN RATIO 1.1 (0.8-2.0); ANION GAP 19.5 mmol/L (8-16); BILIRUBIN,TOTAL 0.7 mg/dL (0.2-1.2); CALCIUM 8.9 mg/dL (8.4-10.2); CREATININE, SERUM 0.94 mg/dL (0.57-1.11); TOTAL PROTEIN 6.6 g/dL (6.5-8.1)
[2024-03-07 01:15] LABS: POTASSIUM 4.5 mmol/L (3.5-5.1)
[2024-03-07] MEDS ORDERED: MEDROL4 M2 PO (02:08)
[2024-03-07 05:00] VITALS: O2SAT 94
== END 2024-03-07 05:42 | disposition home or self-care (01) ==
LOC: ER 23:46
DX: R06.02 Shortness of breath (principal); J44.9 Chronic obstructive pulmonary disease, unspecified; I10 Essential (primary) hypertension; E03.9 Hypothyroidism, unspecified; I25.10 Atherosclerotic heart disease of native coronary artery without angina pectoris; K21.9 Gastro-esophageal reflux disease without esophagitis; Z11.52 Encounter for screening for COVID-19; Z86.73 Personal history of transient ischemic attack (TIA), and cerebral infarction without residual deficits; Z95.5 Presence of coronary angioplasty implant and graft
CPT/HCPCS: 36415; 71045; 80053; 83880; 84484; 85025; 87400; 93005; 99284; J2919; U0002

== ENCOUNTER 2024-11-22 16:20 | Emergency (ER) | payer MEDICARE ==
[~2024-11-22] VITALS: Ht 152.4 cm; Wt 41.3 kg
[~2024-11-22 16:20] MED LIST changes: +DOXYCYCLINE HY100 MG PO; +MEDROL4 M2 PO
[2024-11-22 16:50] VITALS: TEMP 97.4
[2024-11-22 17:52] LABS: BASOPHILS % 0.4 % (0.0-1.0); EOSINOPHILS # (AUTO) 0.1 (0.0-0.4); HEMATOCRIT 40.5 % (34.2-44.1); HEMOGLOBIN 12.7 g/dL (12.0-16.0); LYMPHOCYTES # (AUTO) 1.2 (1.0-3.2); LYMPHOCYTES % 17.3 % (18.0-39.1); MEAN CORPUSCULAR HEMOGLOBIN 31.4 pg (28-32); MEAN CORPUSCULAR HGB CONC 31.4 g/dL (31-35); MEAN CORPUSCULAR VOLUME 100.2 fL (81-99); MONOCYTES # (AUTO) 0.5 (0.2-0.8); MONOCYTES % 6.7 % (4.4-11.3); NEUTROPHILS # (AUTO) 5.2 (2.1-6.9); NEUTROPHILS % 74.3 % (38.7-80.0); PLATELET COUNT 200 x10e3/uL (140-360); RED BLOOD COUNT 4.04 x10e6/uL (3.6-5.1); WHITE BLOOD COUNT 7.04 x10e3/uL (4.8-10.8)
[2024-11-22 18:02] LABS: INR 0.88; PROTHROMBIN TIME 12.5 seconds (11.9-14.5)
[2024-11-22 18:03] LABS: PARTIAL THROMBOPLASTIN TIME 23.8 seconds (23.8-35.5)
[2024-11-22 19:11] LABS: ALBUMIN 3.6 g/dL (3.5-5.0); ALBUMIN/GLOBULIN RATIO 1.5 (0.8-2.0); BILIRUBIN,TOTAL 0.3 mg/dL (0.2-1.2); CALCIUM 8.8 mg/dL (8.4-10.2); CREATININE, SERUM 1.09 mg/dL (0.57-1.11)
[2024-11-22 21:17] VITALS: RESP 21
[2024-11-22 22:46] VITALS: PULSE 80
[2024-11-23 00:43] VITALS: BP 115/71; PULSE 74; RESP 18; TEMP 98.3; O2SAT 98
== END 2024-11-23 00:05 | disposition home or self-care (01) ==
LOC: ER 18:32
DX: S01.81XA Laceration without foreign body of other part of head, initial encounter (principal); S50.11XA Contusion of right forearm, initial encounter; S70.02XA Contusion of left hip, initial encounter; W01.198A Fall on same level from slipping, tripping and stumbling with subsequent striking against other object, initial encounter; Y93.01 Activity, walking, marching and hiking; Y92.89 Other specified places as the place of occurrence of the external cause; R94.31 Abnormal electrocardiogram [ECG] [EKG]
CPT/HCPCS: 36415; 70450; 72125; 72192; 80053; 84484; 85025; 85610; 85730; 93005; 99284

== ENCOUNTER 2025-05-25 17:13 | Emergency (ER) | payer MEDICARE ==
[~2025-05-25] VITALS: Ht 152.4 cm; Wt 41.3 kg
[2025-05-25 17:30] VITALS: TEMP 98.1
[2025-05-25 18:24] LABS: BASOPHILS % 0.4 % (0.0-1.0); EOSINOPHILS % 1.7 % (0.0-6.0); LYMPHOCYTES % 31.4 % (18.0-39.1); MONOCYTES % 10.4 % (4.4-11.3); NEUTROPHILS % 55.9 % (38.7-80.0); RED CELL DISTRIBUTION WIDTH 13.5 % (11.7-14.4)
[2025-05-25 18:38] LABS: INR 0.88
[2025-05-25 18:45] LABS: EST GLOMERULAR FILTRATION RATE 48.0 ML/MIN (>=60)
[2025-05-25 18:53] VITALS: PULSE 59; RESP 16
[2025-05-25] MEDS: ONDANSETRON HCL 4 MG ORAL DISINTEGRATING TAB PO ONE (19:20)
[2025-05-25] MEDS: TRAMADOL HCL 50 MG TAB PO ONE (19:20)
[2025-05-25 19:51] VITALS: BP 166/70; O2SAT 99
== END 2025-05-25 19:50 | disposition home or self-care (01) ==
LOC: ER 18:56
DX: G50.0 Trigeminal neuralgia (principal); I10 Essential (primary) hypertension; E03.9 Hypothyroidism, unspecified; I25.10 Atherosclerotic heart disease of native coronary artery without angina pectoris; F32.A Depression, unspecified; K21.9 Gastro-esophageal reflux disease without esophagitis; F03.90 Unspecified dementia, unspecified severity, without behavioral disturbance, psychotic disturbance, mood disturbance, and anxiety; Z95.5 Presence of coronary angioplasty implant and graft; Z88.0 Allergy status to penicillin; Z88.5 Allergy status to narcotic agent; Z88.6 Allergy status to analgesic agent; Z88.2 Allergy status to sulfonamides; Z86.73 Personal history of transient ischemic attack (TIA), and cerebral infarction without residual deficits
CPT/HCPCS: 36415; 70450; 80053; 85025; 85610; 85730; 99284; Q0162

== ENCOUNTER 2025-06-10 02:17 | Inpatient (IN) | payer MEDICARE ==
[~2025-06-10] VITALS: Ht 152.4 cm; Wt 41.9 kg
[2025-06-10] VITALS (15 sets, daily range): BP systolic 117–166; BP diastolic 51–97; PULSE 84–112; RESP 17–22; TEMP 97.5–98.5; O2SAT 96–100
[2025-06-10] MEDS ORDERED: ACETAMINOPHEN 325 MG TAB PO PRN ×3 (02:30→11:15)
[2025-06-10 03:09] LABS: BASOPHILS % 0.4 % (0.0-1.0); EOSINOPHILS % 0.6 % (0.0-6.0); LYMPHOCYTES % 11.8 % (18.0-39.1); MONOCYTES % 6.5 % (4.4-11.3); NEUTROPHILS % 80.3 % (38.7-80.0); RED CELL DISTRIBUTION WIDTH 13.2 % (11.7-14.4)
[2025-06-10] MEDS: SODIUM CHLORIDE 0.9% 1000ML 1,000 ML IV STA (03:11)
[2025-06-10] MEDS: LEVOFLOXACIN 750MG/D5W 150ML 150 ML IV SCH (03:12)
[2025-06-10 03:28] LABS: EST GLOMERULAR FILTRATION RATE 45.0 ML/MIN (>=60)
[2025-06-10] MEDS ORDERED: ONDANSETRON HCL INJ 2MG/ML 2ML 2 MG/ML VIAL IV PRN (03:45)
[2025-06-10] MEDS ORDERED: LABETALOL HCL 5 MG/ML 20ML VIAL IV PRN (04:00)
[2025-06-10] MEDS ORDERED: POLYETHYLENE GLYCOL 3350 17 GM PACK PO PRN (04:00)
[2025-06-10 04:22] LABS: EPITHELIAL CELLS,URINE FEW /LPF; LEUKOCYTE ESTERASE ,URINE NEGATIVE (NEGATIVE); PROTEIN,URINE DIPSTICK 2+ (NEGATIVE); URINE UROBILINOGEN 1 mg/dL (0.2 - 1); WBC,URINE (MAN) 0-5 /HPF (0-5)
[2025-06-10 05:08] LABS: CORONAVIRUS COVID-19 AG NEGATIVE (NEGATIVE)
[2025-06-10] MEDS ORDERED: LISINOPRIL10 MG PO (05:33)
[2025-06-10] MEDS ORDERED: MIRTAZAPINE15 MG PO (05:37)
[2025-06-10] MEDS ORDERED: ROPINIROLE HC0.25 MG PO (05:38)
[2025-06-10] MEDS ORDERED: ACETAMINOPHEN325 M1 PO (05:43)
[2025-06-10] MEDS ORDERED: ESTRADIOL1 MG PO (05:46)
[2025-06-10] MEDS ORDERED: TYLENOL325 MG PO (05:49)
[2025-06-10] MEDS ORDERED: DYMISTA NASAL S23 GM INH (05:53)
[2025-06-10] MEDS ORDERED: GERI-MOX ANTAC355 ML PO (05:57)
[2025-06-10] MEDS ORDERED: IPRAT-ALBUT 0.5-3 ML IH (06:03)
[2025-06-10] MEDS ORDERED: LOPERAMIDE2 MG PO (06:06)
[2025-06-10] MEDS ORDERED: TRAZODONE HCL50 MG PO (06:07)
[2025-06-10] MEDS ORDERED: METHOCARBAMOL750 MG PO (06:09)
[2025-06-10] MEDS ORDERED: TAB-A-VITE TA400 MC1 (06:12)
[2025-06-10] MEDS ORDERED: CARBAMAZEPINE200 MG PO (06:14)
[2025-06-10] MEDS: ALBUTEROL SULF 0.083% NEB SOLN 3 ML NEB NEB SCH (07:54)
[2025-06-10] MEDS: DOCUSATE SODIUM 100 MG CAP PO SCH (09:08)
[2025-06-10] MEDS ORDERED: ALBUTEROL/IPRATROPIUM 3 ML NEB NEB PRN (11:00)
[2025-06-10] MEDS: LACTATED RINGER'S 1,000 ML INJ ONE (12:01)
[2025-06-10] MEDS ORDERED: LOPERAMIDE HCL 2 MG CAP PO PRN (18:00)
[2025-06-10] MEDS ORDERED: MAGNESIUM/ALUMINUM/SIMETHICONE 30 ML UDC PO PRN (18:00)
[2025-06-10] MEDS: MIRTAZAPINE 15 MG TAB PO SCH (21:36)
[2025-06-10] MEDS: ROPINIROLE HCL 0.25 MG TAB PO SCH (21:36)
[2025-06-10] MEDS: METHOCARBAMOL 750 MG TAB PO SCH (21:36)
[2025-06-11] VITALS (15 sets, daily range): BP systolic 113–140; BP diastolic 46–61; PULSE 83–107; RESP 15–20; TEMP 97.7–100.1; O2SAT 95–100
[2025-06-11 05:47] LABS: BASOPHILS % 0.4 % (0.0-1.0); EOSINOPHILS % 1.0 % (0.0-6.0); LYMPHOCYTES % 9.8 % (18.0-39.1); MONOCYTES % 8.2 % (4.4-11.3); NEUTROPHILS % 80.0 % (38.7-80.0); RED CELL DISTRIBUTION WIDTH 13.2 % (11.7-14.4)
[2025-06-11 06:17] LABS: EST GLOMERULAR FILTRATION RATE 61.0 ML/MIN (>=60)
[2025-06-11 06:28] LABS: CHOL/HDL RATIO 4.3 (3.0-3.6); LDL CHOLESTEROL 90.0 MG/DL (60-130); PHOSPHORUS 2.6 MG/DL (2.3-4.7)
[2025-06-11] MEDS: LISINOPRIL 10 MG TAB PO SCH (08:54)
[2025-06-11] MEDS: ASPIRIN 81 MG CHEW TAB PO SCH (08:54)
[2025-06-11] MEDS: MULTIVITAMINS/MINERALS TAB PO SCH (08:54)
[2025-06-11] MEDS: CARBAMAZEPINE 200 MG TAB PO SCH (08:55)
[2025-06-11] MEDS: ESTRADIOL 1 MG TAB PO SCH (08:55)
[2025-06-11] MEDS: CLONAZEPAM 0.5 MG TAB PO PRN (21:24)
[2025-06-12] VITALS (14 sets, daily range): BP systolic 110–128; BP diastolic 39–94; PULSE 72–97; RESP 14–23; TEMP 97.6–99.5; O2SAT 93–100
[2025-06-12] MEDS: TRAZODONE HCL 50 MG TAB PO PRN (20:52)
[2025-06-13] VITALS (9 sets, daily range): BP systolic 115–134; BP diastolic 40–54; PULSE 78–103; RESP 14–19; TEMP 97.9–99.5; O2SAT 93–100
[2025-06-13 05:30] LABS: BASOPHILS % 0.6 % (0.0-1.0); EOSINOPHILS % 1.7 % (0.0-6.0); LYMPHOCYTES % 10.3 % (18.0-39.1); MONOCYTES % 7.3 % (4.4-11.3); NEUTROPHILS % 79.1 % (38.7-80.0); RED CELL DISTRIBUTION WIDTH 13.1 % (11.7-14.4)
[2025-06-13 06:00] LABS: EST GLOMERULAR FILTRATION RATE 39.0 ML/MIN (>=60)
[2025-06-13] MEDS ORDERED: ONDANSETRON HCL 4 MG ORAL DISINTEGRATING TAB PO PRN (13:45)
[2025-06-13] MEDS ORDERED: LEVOFLOXACIN250 MG PO (14:03)
[2025-06-15] MEDS ORDERED: LEVOFLOXACIN 250 MG TAB PO SCH (08:00)
== END 2025-06-13 17:15 | DRG 190 ==
LOC: ER 02:23 → ERHOLD 03:35 → MED/SURG2 05:00
PROVIDERS: ADMIT Internal Medicine; ATTEND Internal Medicine
DX: J44.0 Chronic obstructive pulmonary disease with (acute) lower respiratory infection (principal); J69.0 Pneumonitis due to inhalation of food and vomit; Z68.1 Body mass index [BMI] 19.9 or less, adult; J44.1 Chronic obstructive pulmonary disease with (acute) exacerbation; I12.9 Hypertensive chronic kidney disease with stage 1 through stage 4 chronic kidney disease, or unspecified chronic kidney disease; N18.9 Chronic kidney disease, unspecified; I25.10 Atherosclerotic heart disease of native coronary artery without angina pectoris; Z95.5 Presence of coronary angioplasty implant and graft; I73.9 Peripheral vascular disease, unspecified; Z95.820 Peripheral vascular angioplasty status with implants and grafts; Z71.3 Dietary counseling and surveillance; Z87.891 Personal history of nicotine dependence; R13.10 Dysphagia, unspecified; I35.0 Nonrheumatic aortic (valve) stenosis; Z95.810 Presence of automatic (implantable) cardiac defibrillator; E03.9 Hypothyroidism, unspecified; K21.9 Gastro-esophageal reflux disease without esophagitis; F03.90 Unspecified dementia, unspecified severity, without behavioral disturbance, psychotic disturbance, mood disturbance, and anxiety; F09 Unspecified mental disorder due to known physiological condition; G50.0 Trigeminal neuralgia; Z11.52 Encounter for screening for COVID-19; Z79.899 Other long term (current) drug therapy; Z79.82 Long term (current) use of aspirin
CPT/HCPCS: 36415; 71045; 71250; 74230; 80048; 80053; 80061; 81001; 82550; 83036; 83605; 83690; 83735; 83880; 84100; 84439; 84443; 84484; 85025; 87040; 87081; 87086; 93005; 93306; 94640; 94799; 99285; J7030